=== PATIENT | female | born 1990 | race Caucasian/White ===

== ENCOUNTER 2025-03-14 11:10 | Inpatient (IN) | payer OTHER ==
[~2025-03-14] VITALS: Ht 157.5 cm; Wt 60.9 kg
[2025-03-14] MEDS ORDERED: ACETAMINOPHEN 325 MG TABLET PO PRN (13:30)
[2025-03-14] MEDS ORDERED: MAGNESIUM HYDROXIDE SUSPENSION 30 ML UDCUP PO PRN (13:30)
[2025-03-14] MEDS ORDERED: ONDANSETRON HCL 4 MG/2 ML VIAL IVP PRN (13:30)
[2025-03-14 13:34] LABS: APPEARANCE,URINE CLEAR (CLEAR); GLUCOSE, URINE (UA) NEGATIVE (NEGATIVE); LEUKOCYTE ESTERASE ,URINE SMALL (NEGATIVE); NITRATE,URINE NEGATIVE (NEGATIVE); OCCULT BLOOD,URINE NEGATIVE (NEGATIVE); PH,URINE DRUG SCREEN 5.5 (5.0-8.0); SPECIFIC GRAVITIY, URINE 1.031 (1.003-1.030)
[2025-03-14] MEDS: SODIUM CHLORIDE 0.9% 1,000 ML IV ONE (13:39)
[2025-03-14 13:41] LABS: ALCOHOL, URINE DRUG SCREEN NEGATIVE (NEGATIVE); AMPHET/METH SCREEN,URINE NEGATIVE (NEGATIVE); BARBITURATE SCREEN, URINE NEGATIVE (NEGATIVE); CANNABINOID SCREEN,URINE NEGATIVE (NEGATIVE); COCAINE SCREEN,URINE NEGATIVE (NEGATIVE); METHADONE SCREEN, URINE NEGATIVE (NEGATIVE)
[2025-03-14 13:59] LABS: SQUAMOUS EPITHELIAL CELL,UR Rare /LPF (None Seen)
[2025-03-14 20:17] VITALS: BP 106/66; PULSE 70; RESP 18; TEMP 98.2; O2SAT 98
[2025-03-14] MEDS: DOCUSATE SODIUM 100 MG CAPSULE PO SCH (20:38)
[2025-03-14] MEDS: FAMOTIDINE 20 MG TABLET PO SCH (20:38)
[2025-03-15 04:26] VITALS: BP 108/67; PULSE 77; RESP 18; TEMP 98.8; O2SAT 100
[2025-03-15 07:54] VITALS: BP 102/67; PULSE 85; RESP 18; TEMP 98.4; O2SAT 98
[2025-03-15 09:13] LABS: PLATELET COUNT (AUTO) 136 K/uL (150-450); RED BLOOD CELL COUNT(AUTO) 4.80 MIL/uL (4.00-5.20); RED CELL DISTRIBUTION WIDTH 15.0 % (11.5-14.5); WHITE BLOOD COUNT (AUTO) 4.6 K/uL (4.5-11.0)
[2025-03-15 09:21] LABS: CALCIUM, TOTAL 8.3 mg/dL (8.8-10.5); CREATININE 0.61 mg/dL (0.60-1.30); GLOMERULAR FILTR. RATE CALC > 60 mL/min (>60); GLUCOSE,RANDOM 105 mg/dL (70-110); SODIUM SERUM 140 mmol/L (136-145); UREA NITROGEN, BLOOD 6 mg/dL (7-18)
[2025-03-15 09:26] LABS: ASPARTATE AMINOTRANSFERASE 26 U/L (15-37); TOTAL PROTEIN, SERUM 6.9 g/dL (6.4-8.2)
[2025-03-15] MEDS ORDERED: MAGN-169 PO (09:59)
[2025-03-15] MEDS ORDERED: ACET-2247 PO (09:59)
== END 2025-03-15 14:00 | DRG 392 ==
LOC: EMS 11:34 → EDH 13:20 → 6N 20:15
PROVIDERS: ADMIT Internal Medicine; ATTEND Internal Medicine
DX: R10.84 Generalized abdominal pain (principal)
CPT/HCPCS: 74176; 80053; 80307; 81001; 84703; 85025; 99285; J7030